=== PATIENT | female | born 1985 | race Asian ===

== ENCOUNTER 2019-06-29 19:58 | Emergency (ER) | payer BC, OTHER ==
[~2019-06-29] VITALS: Ht 157.5 cm; Wt 60.0 kg
[~2019-06-29 19:58] MED LIST: CEPH-443 PO
[2019-06-29 19:59] VITALS: Ht 157.5 cm; Wt 60.0 kg
[2019-06-29] MEDS ORDERED: SOD CHLORIDE 0.9% 500 ML IV STA (21:13)
[2019-06-29] MEDS ORDERED: morphine 4 MG/ML VIAL IV STA (21:13)
--- NOTE | 2019-06-29 21:20 | ERD ---
ER Documentation Chief Complaint Chief Complaint VB S/P MISCARRIAGE. HPI Patient is a 34 years old G1PO female at 6 weeks gestation presenting to the clinic for heavy vaginal bleeding and pelvic pain x 2 hours. Patient reports bleeding is only prominent during micturition. Patient reports beta HCG was 14,000 3 days ago. ROS All systems reviewed and are negative except as per history of present illness. Medications Home Meds Active Scripts Cephalexin* (Keflex*) 500 Mg Capsule, 500 MG PO QID for 5 Days, CAP Prov:YEMI GOLDBERG PA-C 06/29/19 Allergies Allergies: Coded Allergies: No Known Allergy (Unverified , 05/22/13) PMhx/Soc Medical and Surgical Hx: pt denies Medical Hx History of Surgery: Yes (APPENDECTOMY) Anesthesia Reaction: No (UNKNOWN) Hx Neurological Disorder: No Hx Respiratory Disorders: No Hx Cardiac Disorders: No Hx Psychiatric Problems: No Hx Miscellaneous Medical Probl: No Hx Alcohol Use: No Hx Substance Use: No Hx Tobacco Use: No Smoking Status: Never smoker Physical Exam Vitals Vital Signs Date Temp Pulse Resp B/P (MAP) Pulse Ox O2 O2 Flow FiO2 Time Delivery Rate 06/29/19 62 16 90/58 (69) 98 Room Air 23:25 06/29/19 99.6 79 18 120/74 100 19:59 (89) Physical Exam Const: No acute distress Head: Atraumatic Eyes: Normal Conjunctiva ENT: Normal External Ears, Nose and Mouth. Neck: Full range of motion. No meningismus. Resp: Clear to auscultation bilaterally Cardio: Regular rate and rhythm, no murmurs Abd: Soft, non tender, non distended. Normal bowel sounds Skin: No petechiae or rashes Back: No midline or flank tenderness Ext: No cyanosis, or edema Neur: Awake and alert Psych: Normal Mood and Affect Result Diagram: 06/29/19211906/29/192119 Results 24 hrs Laboratory Tests Test 06/29/19 21:20 White Blood Count 15.3 10^3/ul Red Blood Count 4.21 10^6/ul Hemoglobin 12.5 g/dl Hematocrit 36.4 % Mean Corpuscular Volume 86.5 fl Mean Corpuscular Hemoglobin 29.7 pg Mean Corpuscular Hemoglobin Concent 34.3 g/dl Red Cell Distribution Width 12.6 % Platelet Count 274 10^3/UL Mean Platelet Volume 10.7 fl Immature Granulocytes % 0.500 % Neutrophils % 80.2 % Lymphocytes % 14.2 % Monocytes % 4.8 % Eosinophils % 0.1 % Basophils % 0.2 % Nucleated Red Blood Cells % 0.0 /100WBC Immature Granulocytes # 0.080 10^3/ul Neutrophils # 12.3 10^3/ul Lymphocytes # 2.2 10^3/ul Monocytes # 0.7 10^3/ul Eosinophils # 0.0 10^3/ul Basophils # 0.0 10^3/ul Nucleated Red Blood Cells # 0.0 10^3/ul Urine Color YELLOW Urine Clarity CLEAR Urine pH 6.0 Urine Specific Percy 1.004 Urine Ketones TRACE mg/dL Urine Nitrite NEGATIVE mg/dL Urine Bilirubin NEGATIVE mg/dL Urine Urobilinogen NEGATIVE mg/dL Urine Leukocyte Esterase TRACE Faisal/ul Urine Microscopic RBC 38 /HPF Urine Microscopic WBC 4 /HPF Urine Bacteria FEW /HPF Urine Hemoglobin 3+ mg/dL Urine Glucose NEGATIVE mg/dL Urine Total Protein NEGATIVE mg/dl Sodium Level 138 mmol/L Potassium Level 3.6 mmol/L Chloride Level 105 mmol/L Carbon Dioxide Level 21 mmol/L Anion Gap 12 Blood Urea Nitrogen 5 mg/dl Creatinine 0.54 mg/dl Est Glomerular Filtrat Rate mL/min > 60 mL/min Glucose Level 104 mg/dl Calcium Level 10.3 mg/dl Total Bilirubin 0.5 mg/dl Direct Bilirubin 0.00 mg/dl Indirect Bilirubin 0.5 mg/dl Aspartate Amino Transf (AST/SGOT) 23 IU/L Alanine Aminotransferase (ALT/SGPT) 20 IU/L Alkaline Phosphatase 58 IU/L Total Protein 8.2 g/dl Albumin 4.6 g/dl Globulin 3.60 g/dl Albumin/Globulin Ratio 1.27 Beta HCG, Quantitative 2525.4 mIU/ml Current Medications Medications Dose Sig/[place] Start Time Status Last (Trade) Ordered Route PRN Stop Time Admin Dose Reason Admin Sodium 500 ml @ Q1H STAT 06/29/19 DC 06/29/19 Chloride 500 mls/hr IV 21:13 06/29/19 21:22 22:12 Morphine 2 mg ONCE STAT 06/29/19 DC 06/29/19 Sulfate IV 21:13 06/29/19 21:27 (morphine) 21:17 Cephalexin 500 mg ONCE ONCE 06/29/19 DC 06/29/19 (Keflex) PO 22:30 06/29/19 22:49 22:31 Ketorolac 15 mg ONCE STAT 06/29/19 DC 06/29/19 Tromethamine IV 23:30 06/29/19 23:36 (Toradol) 23:32 Procedures/MDM Patient was seen and evaluated for vaginal bleeding at 6 weeks gestation. CBC, CMP, urinalysis leukocytosis, leukocyte esterase, urine WBC, and hematuria. Beta HCG is 2,525. Pelvic/abdominal ultrasound revealed: 1. No intrauterine and no adnexal mass. 2. Differential diagnosis includes early intrauterine , failed or ectopic . 3. Recommend correlation with serial serum beta HCG and follow-up ultrasound in 10 days or earlier if clinically warranted. Please see reference below. IV fluids with 2 mg morphine IV administered in ED. Keflex 500 mg p.o. initiated in ED for empiric UTI treatment. Low suspicion for appendicitis, cholecystitis, pancreatitis, colitis. Patient will be contacted for urine culture results. Patient is stable and ready for discharge. Follow-up with PCP and [facility]. Patient will be discharged with Keflex. Patient is most likely experiencing UTI versus possible early onset pyelonephritis. F/U in 10 days for repeat beta HCG and ultrasound. Patient was advised that she is most likely experiencing miscarriage due to a drop of beta HCG and no Intrauterine as of today. Dr. Mccarty agreed with management of care. Departure Diagnosis: Primary Impression: Vaginal bleeding Additional Impression: UTI (urinary tract infection) Urinary tract infection type: site unspecified Hematuria presence: with hematuria Qualified Codes: N39.0 - Urinary tract infection, site not specified; R31.9 - Hematuria, unspecified Condition: Stable Patient Instructions: VBPG, Understanding Urinary Tract Infections (UTIs) Referrals: [facility] Additional Instructions: Patient advised to return to the ED immediately for new or worsening symptoms. Patient advised to follow up with primary care provider in the next 24-48 hours. Patient verbalized understanding and agrees with treatment plan and course of action. If patient has no primary care they may follow up with [facility] Medical [place] [address] [place] [id number] or [facility] [address] [place] [address] [facility] [address] [place] [address] YEMI GOLDBERG PA-C Jun 29, 2019 21:20
[2019-06-29] MEDS ORDERED: CEPHALEXIN 500 MG CAP PO ONE (22:30)
[2019-06-29 23:25] VITALS: BP 90/58; PULSE 62; RESP 16
[2019-06-29] MEDS ORDERED: KETOROLAC 15 MG INJ IV STA (23:30)
== END 2019-06-29 23:40 | disposition home or self-care (01) ==
LOC: FTE 19:58
DX: O20.9 Hemorrhage in early pregnancy, unspecified (principal); O23.41 Unspecified infection of urinary tract in pregnancy, first trimester; R10.2 Pelvic and perineal pain; Z3A.01 Less than 8 weeks gestation of pregnancy
CPT/HCPCS: 36415; 76801; 76817; 80053; 81001; 84702; 85025; 86900; 86901; 87086; 96374; 96375; 99285; J1885; J2270; J7040